=== PATIENT | female | born 1965 | race Caucasian/White ===

== ENCOUNTER 2018-08-16 06:23 | Day surgery (SDC) | payer MEDICAID ==
[2018-08-12 15:54] LABS: BASOPHILS # (AUTO) 0.1 X10'3 (0-0.2); BASOPHILS % (AUTO) 0.5 % (0-1); EOSINOPHILS # (AUTO) 0.3 X10'3 (0-0.9); EOSINOPHILS % (AUTO) 2.1 % (0-6); LYMPHOCYTES % (AUTO) 31.2 % (21-51); MEAN CORPUSCULAR HEMOGLOBIN 29.3 PG (27.0-31.0); MEAN CORPUSCULAR HGB CONC 33.3 g/dL (33.0-36.5); MEAN CORPUSCULAR VOLUME 88.1 FL (78-98); MEAN PLATELET VOLUME 7.5 FL (7.4-10.4); MONOCYTES # (AUTO) 0.9 X10'3 (0-0.9); MONOCYTES % (AUTO) 6.9 % (2-12); NEUTROPHILS # (AUTO) 7.6 X10'3 (1.8-7.7); NEUTROPHILS % (AUTO) 59.3 % (42-75); PRE OP HEMATOCRIT 45.3 % (35.0-45.0); PRE OP HEMOGLOBIN 15.1 g/dL (12.0-16.0); PRE OP PLATELET COUNT 453 X10'3 (140-440); RED BLOOD COUNT 5.14 X10'6 (4.20-5.60); RED CELL DISTRIBUTION WIDTH 13.9 % (11.5-14.5)
[2018-08-12 16:14] LABS: ALBUMIN 4.1 G/DL (3.4-5.0); ALBUMIN/GLOBULIN RATIO 1.2 (1.1-1.5); ALKALINE PHOSPHATASE 74 IU/L (46-116); BLOOD UREA NITROGEN 12 MG/DL (7-18); BUN/CREATININE RATIO 13.2 (6.6-38.0); CALCIUM 9.8 MG/DL (8.5-10.1); CHLORIDE 103 MMOL/L (99-107); CREATININE 0.91 MG/DL (0.40-0.90); PRE OP ALT 23 U/L (30-65); PRE OP ANION GAP 8 (8-16); PRE OP AST 24 U/L (10-37); PRE OP BILIRUB, TOTAL 0.4 MG/DL (0.0-1.0); PRE OP GLUCOSE 91 MG/DL (70-104); PRE OP POTASSIUM 3.6 MMOL/L (3.4-5.1); PRE OP SODIUM 141 MMOL/L (135-145); TOTAL PROTEIN 7.6 G/DL (6.4-8.2); eGFR 64 ML/MIN
[2018-08-16] VITALS (7 sets, daily range): BP systolic 103–129; BP diastolic 44–76
[~2018-08-16] VITALS: Ht 152.4 cm; Wt 52.4 kg
[~2018-08-16 06:23] MED LIST: ALBU6.7H INH; CLINDAmcin 900mg/NS 50ml IVPB 50 ML IV ONE; TIOT18CA3 INH; VALARIAN ROOT PO; albuterol 2.5 MG/3 ML nebule NEB ONE; clindamycin 600mg/D5W 50ml 50 ML IV ONE; famotidine 20mg tablet PO ONE; ringers solution, lacted 1,000 ML IV SCH
[2018-08-16] MEDS ORDERED: BUPIVAcaine/PF 2.5mg/ml (0.25%) 10ml vial ONE ×2 (06:48→08:47)
[2018-08-16] MEDS ORDERED: LIDOcaine 1% (10mg/ml) 2ml vial ONE (07:06)
[2018-08-16] MEDS ORDERED: LIDOcaine 0.5% (5mg/ml) 50ml vial ONE (07:13)
[2018-08-16] MEDS ORDERED: ringers solution, lacted 1,000 ML IV SCH (07:46)
[2018-08-16] MEDS ORDERED: labetalol 20mg/4ml (5mg/ml) syringe IV PRN (07:50)
[2018-08-16] MEDS ORDERED: ondansetron/PF 4mg/2ml inj IV PRN (07:50)
[2018-08-16] MEDS ORDERED: morphine 4 MG/ML inj SYRINge IV PRN ×2 (07:50)
[2018-08-16] MEDS ORDERED: hydrALAZINE 20mg/ml inj. IV PRN (07:50)
[2018-08-16] MEDS ORDERED: fentaNYL/PF 50MCG/1 ML 2ML syringe IV PRN ×2 (07:50)
[2018-08-16] MEDS ORDERED: fentaNYL/PF 50MCG/1 ML 2ML syringe ONE (08:34)
[2018-08-16] MEDS ORDERED: midazolam 2 mg/2 ml injection ONE (08:34)
--- NOTE | 2018-08-16 09:22 | NUR ---
Received from OR via [facility], accompanied by Anesthesiologist DR WANG and report given by Anesthesiologist. PT DROWSY, APPROPRIATE, DENIES PAIN, RIGHT HAND W/DRSG AND JAHAIRA WRAP COVERING CDI, PT ABLE TO WIGGLE JODIE SALGADO, COMPUTER SPECIALIST 1-2 SECONDS. Addendum: 08/16/18 at 1015 by Karley Figueroa RN Amended: Links added.
== END 2018-08-16 10:22 | disposition home or self-care (01) ==
LOC: PAS 06:23
PROVIDERS: ATTEND Orthopaedic Surgery Hand Surgery
DX: G56.01 Carpal tunnel syndrome, right upper limb (principal); M19.011 Primary osteoarthritis, right shoulder; F17.200 Nicotine dependence, unspecified, uncomplicated; Z98.890 Other specified postprocedural states; Z79.899 Other long term (current) drug therapy; Z88.8 Allergy status to other drugs, medicaments and biological substances
CPT/HCPCS: 29848; 36415; 80053; 82948; 85025; 93005; A6449; J2001; J2250; J3010; J3490; A7000; J7120

== ENCOUNTER 2019-03-11 10:36 | Day surgery (SDC) | payer MEDICAID ==
[2019-03-07 16:29] LABS: BASOPHILS # (AUTO) 0.1 X10'3 (0-0.2); BASOPHILS % (AUTO) 0.8 % (0-1); EOSINOPHILS # (AUTO) 0.3 X10'3 (0-0.9); EOSINOPHILS % (AUTO) 1.8 % (0-6); LYMPHOCYTES # (AUTO) 3.8 X10'3 (1.1-4.8); LYMPHOCYTES % (AUTO) 27.4 % (21-51); MEAN CORPUSCULAR HEMOGLOBIN 30.9 PG (27.0-31.0); MEAN CORPUSCULAR HGB CONC 34.2 g/dL (33.0-36.5); MEAN CORPUSCULAR VOLUME 90.3 FL (78-98); MEAN PLATELET VOLUME 7.4 FL (7.4-10.4); MONOCYTES % (AUTO) 6.8 % (2-12); NEUTROPHILS # (AUTO) 8.8 X10'3 (1.8-7.7); NEUTROPHILS % (AUTO) 63.2 % (42-75); PRE OP HEMATOCRIT 38.2 % (35.0-45.0); PRE OP HEMOGLOBIN 13.1 g/dL (12.0-16.0); PRE OP PLATELET COUNT 458 X10'3 (140-440); RED BLOOD COUNT 4.23 X10'6 (4.20-5.60); RED CELL DISTRIBUTION WIDTH 13.4 % (11.5-14.5)
[2019-03-07 16:39] LABS: ALBUMIN 3.5 G/DL (3.4-5.0); ALKALINE PHOSPHATASE 72 IU/L (46-116); BLOOD UREA NITROGEN 11 MG/DL (7-18); BUN/CREATININE RATIO 13.9 (6.6-38.0); CALCIUM 8.9 MG/DL (8.5-10.1); CHLORIDE 105 MMOL/L (99-107); CREATININE 0.79 MG/DL (0.40-0.90); PRE OP ALT 27 U/L (30-65); PRE OP ANION GAP 9 (8-16); PRE OP AST 32 U/L (10-37); PRE OP BILIRUB, TOTAL 0.4 MG/DL (0.0-1.0); PRE OP GLUCOSE 76 MG/DL (70-104); PRE OP POTASSIUM 3.9 MMOL/L (3.4-5.1); PRE OP SODIUM 143 MMOL/L (135-145); TOTAL CARBON DIOXIDE 29.3 MMOL/L (24-32); TOTAL PROTEIN 7.1 G/DL (6.4-8.2); eGFR 76 ML/MIN
[2019-03-11] VITALS (8 sets, daily range): BP systolic 119–146; BP diastolic 73–83
[~2019-03-11] VITALS: Ht 152.4 cm; Wt 53.5 kg
[~2019-03-11 10:36] MED LIST changes: -ALBU6.7H INH; +ALBU6.7H9 INH; -CLINDAmcin 900mg/NS 50ml IVPB 50 ML IV ONE; +HYDR-4383 PO; +NAPR220C15 PO; -VALARIAN ROOT PO; -albuterol 2.5 MG/3 ML nebule NEB ONE; -clindamycin 600mg/D5W 50ml 50 ML IV ONE; -famotidine 20mg tablet PO ONE; -ringers solution, lacted 1,000 ML IV SCH
[2019-03-11] MEDS ORDERED: cefazolin/dext.iso 2gm/50ml 50 ML IV ONE (12:35)
[2019-03-11] MEDS ORDERED: cloNIDine hcl/PF 100mcg/ml inj ONE (13:15)
[2019-03-11] MEDS ORDERED: midazolam 2 mg/2 ml injection ONE (13:18)
[2019-03-11] MEDS ORDERED: fentaNYL/PF 50MCG/1 ML 2ML syringe ONE (13:18)
[2019-03-11] MEDS ORDERED: propofol inj 20 ML IV ONE (13:25)
[2019-03-11] MEDS ORDERED: ROPIVAcaine 0.5% (5mg/ml) 30ml vial ONE (13:25)
[2019-03-11] MEDS ORDERED: sevoflurane 250ml liquid IH ONE (13:26)
--- NOTE | 2019-03-11 14:35 | NUR ---
Received from OR via BED , accompanied by Anesthesiologist DR ASENCIO and report given by Anesthesiolgist. pATIENT A&OX4, DENIES PAIN, V/S STABLE, NEUROVASCULAR CHECKS INTACT. 20G PIV LUE, SCD ON DRESSING TO RIGHT KNEE CDI WITH IMMOBILIZER BRACE TO RLE
[2019-03-11] MEDS ORDERED: HYDROcodone/acetaminophen 10/325mg tab PO ONE (14:55)
--- NOTE | 2019-03-11 15:35 | NUR ---
pATIENT A&OX4, DENIES PAIN, V/S STABLE, NEUROVASCULAR CHECKS INTACT. 20G PIV LUE D/C, SCD OFF DRESSING TO RIGHT KNEE CDI WITH IMMOBILIZER BRACE TO RLE. PATIENT GIVEN SCRIPT FOR [facility] AND I HAVE REVIEWED D/C INSTRUCTIONS WITH PATIENT AND HER AND THEY HAVE VERBALIZED UNDERSTANDING. PATIENT D/C HOME WITH ALL BELONGINGS AN DHUSBAND GAVE TRANSPORT
[2019-03-12] MEDS ORDERED: albuterol 2.5 MG/3 ML nebule NEB ONE (10:00)
[2019-03-12] MEDS ORDERED: famotidine 20mg tablet PO ONE (10:00)
[2019-03-12] MEDS ORDERED: ringers solution, lacted 1,000 ML IV SCH (10:00)
== END 2019-03-11 15:35 | disposition home or self-care (01) ==
LOC: PAS 10:36
PROVIDERS: ATTEND Orthopaedic Surgery
DX: S82.041A Displaced comminuted fracture of right patella, initial encounter for closed fracture (principal); G89.18 Other acute postprocedural pain; F17.210 Nicotine dependence, cigarettes, uncomplicated; J44.9 Chronic obstructive pulmonary disease, unspecified; F32.9 Major depressive disorder, single episode, unspecified; F41.9 Anxiety disorder, unspecified; Z88.1 Allergy status to other antibiotic agents; Z88.8 Allergy status to other drugs, medicaments and biological substances; Z79.899 Other long term (current) drug therapy; Z98.890 Other specified postprocedural states; W19.XXXA Unspecified fall, initial encounter; Y93.89 Activity, other specified; Y92.094 Garage of other non-institutional residence as the place of occurrence of the external cause; Y99.8 Other external cause status
CPT/HCPCS: 27524; 36415; 64447; 73560; 76000; 80053; 82948; 85025; C1713; J0735; J2250; J2704; J3010; J7120; A4618; A6449; A7000; J2795

== ENCOUNTER 2019-10-28 10:26 | Day surgery (SDC) | payer MEDICAID ==
[2019-10-22 11:12] LABS: BASOPHILS # (AUTO) 0.1 X10'3 (0-0.2); BASOPHILS % (AUTO) 1.2 % (0-1); EOSINOPHILS # (AUTO) 0.3 X10'3 (0-0.9); EOSINOPHILS % (AUTO) 2.8 % (0-6); LYMPHOCYTES # (AUTO) 4.4 X10'3 (1.1-4.8); LYMPHOCYTES % (AUTO) 40.7 % (21-51); MEAN CORPUSCULAR HEMOGLOBIN 29.4 PG (27.0-31.0); MEAN CORPUSCULAR HGB CONC 33.2 g/dL (33.0-36.5); MEAN CORPUSCULAR VOLUME 88.5 FL (78-98); MEAN PLATELET VOLUME 7.6 FL (7.4-10.4); MONOCYTES # (AUTO) 0.7 X10'3 (0-0.9); MONOCYTES % (AUTO) 6.5 % (2-12); NEUTROPHILS # (AUTO) 5.2 X10'3 (1.8-7.7); NEUTROPHILS % (AUTO) 48.8 % (42-75); PRE OP HEMATOCRIT 43.8 % (35.0-45.0); PRE OP HEMOGLOBIN 14.6 g/dL (12.0-16.0); PRE OP PLATELET COUNT 432 X10'3 (140-440); RED BLOOD COUNT 4.95 X10'6 (4.20-5.60); RED CELL DISTRIBUTION WIDTH 13.8 % (11.5-14.5)
[2019-10-22 11:27] LABS: ALBUMIN 3.9 G/DL (3.4-5.0); ALBUMIN/GLOBULIN RATIO 1.2 (1.1-1.5); ALKALINE PHOSPHATASE 72 IU/L (46-116); BLOOD UREA NITROGEN 11 MG/DL (7-18); BUN/CREATININE RATIO 11.7 (6.6-38.0); CALCIUM 9.3 MG/DL (8.5-10.1); CHLORIDE 106 MMOL/L (99-107); CREATININE 0.94 MG/DL (0.40-0.90); PRE OP ALT 30 U/L (30-65); PRE OP ANION GAP 7 (8-16); PRE OP AST 31 U/L (10-37); PRE OP BILIRUB, TOTAL 0.4 MG/DL (0.0-1.0); PRE OP GLUCOSE 93 MG/DL (70-104); PRE OP POTASSIUM 4.1 MMOL/L (3.4-5.1); PRE OP SODIUM 144 MMOL/L (135-145); TOTAL CARBON DIOXIDE 31.5 MMOL/L (24-32); TOTAL PROTEIN 7.1 G/DL (6.4-8.2); eGFR 62 ML/MIN
[2019-10-28] VITALS (11 sets, daily range): BP systolic 123–153; BP diastolic 59–85
[~2019-10-28] VITALS: Ht 167.6 cm; Wt 56.3 kg
[~2019-10-28 10:26] MED LIST changes: +BUPR100T5 PO; -HYDR-4383 PO; +VANCOMYCIN INJ 1000 MG in NORMAL SALINE 250ml IV.SOLN IV ONE; +acetaminophen 325mg tablet PO ONE; +albuterol 2.5 MG/3 ML nebule NEB ONE; +cefazolin/dext.iso 2gm/50ml 50 ML IV ONE; +celeCOXIB 100mg capsule PO ONE; +famotidine 20mg tablet PO ONE; +gabapentin 300mg capsule PO ONE; +metoclopramide 5 mg/ml inj IV ONE; +oxyCODONE SR 10mg (sust. release) tab -2 tabs (20mg) PO ONE; +ringers solution, lacted 1,000 ML IV SCH; +tranexamic acid 1gm/0.7% sal. 100 ML IV ONE
[2019-10-28] MEDS ORDERED: LIDOcaine 1% (10mg/ml) 2ml vial ONE (11:32)
[2019-10-28] MEDS ORDERED: ringers solution, lacted 1,000 ML IV SCH (14:11)
[2019-10-28] MEDS ORDERED: hydrALAZINE 20mg/ml inj. IV PRN (14:15)
[2019-10-28] MEDS ORDERED: labetalol 20mg/4ml (5mg/ml) syringe IV PRN (14:15)
[2019-10-28] MEDS ORDERED: fentaNYL/PF 50MCG/1 ML 2ML syringe IV PRN ×2 (14:15)
[2019-10-28] MEDS ORDERED: ondansetron/PF 4mg/2ml inj IV PRN (14:15)
[2019-10-28] MEDS ORDERED: morphine 2 MG/ML inj. syringe IV PRN (14:15)
[2019-10-28] MEDS ORDERED: ondansetron/PF 4mg/2ml inj ONE (14:38)
[2019-10-28] MEDS ORDERED: LIDOcaine 2% (20mg/ml) 5ml vial ONE (14:38)
[2019-10-28] MEDS ORDERED: propofol inj 20 ML IV ONE (14:38)
[2019-10-28] MEDS ORDERED: ROPIVAcaine 0.5% (5mg/ml) 30ml vial ONE (14:39)
[2019-10-28] MEDS ORDERED: dexamethasone sod phosphate 10mg/ml inj ONE (14:52)
[2019-10-28] MEDS ORDERED: sevoflurane 250ml liquid IH ONE (14:52)
[2019-10-28] MEDS ORDERED: fentaNYL/PF 50MCG/1 ML 2ML syringe ONE (15:57)
--- NOTE | 2019-10-28 16:05 | NUR ---
RECEIVED FROM OR VIA [facility] ACCOMPANIED BY ANESTHESIOLOGIST DR WANG, REPORT GIVEN. PT DROWSY BUT AROUSES WITH NO COMPLAINT OF PAIN AT THIS TIME. DRESSING RLE CDI. PERIPHERAL PULSES PRESENT, GOOD CAP REFILL, SKIN PINK AND WARM, VSS.
[2019-10-28] MEDS: morphine 4 MG/ML inj SYRINge IV PRN ×2 (16:37→16:58)
== END 2019-10-28 17:45 | disposition home or self-care (01) ==
LOC: PAS 10:26
PROVIDERS: ATTEND Orthopaedic Surgery
DX: T84.89XA Other specified complication of internal orthopedic prosthetic devices, implants and grafts, initial encounter (principal); G89.18 Other acute postprocedural pain; F17.210 Nicotine dependence, cigarettes, uncomplicated; Z11.59 Encounter for screening for other viral diseases; J44.9 Chronic obstructive pulmonary disease, unspecified; F41.9 Anxiety disorder, unspecified; F32.9 Major depressive disorder, single episode, unspecified; Z88.8 Allergy status to other drugs, medicaments and biological substances; Z98.890 Other specified postprocedural states; Z79.899 Other long term (current) drug therapy; Y83.8 Other surgical procedures as the cause of abnormal reaction of the patient, or of later complication, without mention of misadventure at the time of the procedure; Y92.89 Other specified places as the place of occurrence of the external cause
CPT/HCPCS: 20680; 36415; 64447; 73560; 76000; 80053; 82948; 85025; 93005; A6222; J1100; J2001; J2270; J2405; J2704; J3010; J3370; J7120; U0003; A4618; A6449; A7000; J2795

== ENCOUNTER 2021-05-26 16:04 | Emergency (ER) | payer MEDICAID ==
[~2021-05-26] VITALS: Ht 152.4 cm; Wt 51.6 kg
[~2021-05-26 16:04] MED LIST changes: -VANCOMYCIN INJ 1000 MG in NORMAL SALINE 250ml IV.SOLN IV ONE; -acetaminophen 325mg tablet PO ONE; -albuterol 2.5 MG/3 ML nebule NEB ONE; -cefazolin/dext.iso 2gm/50ml 50 ML IV ONE; -celeCOXIB 100mg capsule PO ONE; -famotidine 20mg tablet PO ONE; -gabapentin 300mg capsule PO ONE; -metoclopramide 5 mg/ml inj IV ONE; -oxyCODONE SR 10mg (sust. release) tab -2 tabs (20mg) PO ONE; -ringers solution, lacted 1,000 ML IV SCH; -tranexamic acid 1gm/0.7% sal. 100 ML IV ONE
[2021-05-26] MEDS ORDERED: HYDROcodone/acetaminophen 10/325mg tab PO ONE (16:25)
[2021-05-26] MEDS ORDERED: BUPIVAcaine 0.5% inj/PF 30 ml vial IJ ONE (16:50)
[2021-05-26] MEDS ORDERED: HYDR-3965 PO (17:07)
[2021-05-26 18:42] VITALS: BP 136/95
== END 2021-05-26 18:45 | disposition home or self-care (01) ==
LOC: ER 16:04
DX: S52.611A Displaced fracture of right ulna styloid process, initial encounter for closed fracture (principal); S52.571A Other intraarticular fracture of lower end of right radius, initial encounter for closed fracture; Z88.1 Allergy status to other antibiotic agents; Z79.899 Other long term (current) drug therapy; X58.XXXA Exposure to other specified factors, initial encounter; Y93.89 Activity, other specified; Y92.89 Other specified places as the place of occurrence of the external cause; Y99.8 Other external cause status
CPT/HCPCS: 29125; 73070; 73110; 99284

== ENCOUNTER 2025-05-09 15:38 | Emergency (ER) | payer MEDICAID ==
[~2025-05-09] VITALS: Ht 152.4 cm; Wt 60.9 kg
[~2025-05-09 15:38] MED LIST changes: +ALBU6.7H14 INH; -ALBU6.7H9 INH
--- NOTE | 2025-05-09 16:01 | Physician Documentation ---
History of Present Illness ~ Chief Complaint: Mechanical Fall Stated Complaint: FALL/L BACK AND KNEE PAIN Time Seen by MD: 15:58 Primary Medical Doctor: Shock Source: patient Mode of Arrival: POV Exam Limitations: no limitations HPI 59-year-old was roller skating when a kid lost balance and pulled on her where s he fell on her right knee and buttocks. Patient is concerned she compress her spine with pain to her lumbar spine and right knee. Patient also has history of previous right knee fracture Dr. Zaragoza was the gas specialist to repaired knee in 2019 no head strike or loss of consciousness Medication Reconciliation Allergies: Coded Allergies: Cephalexin Monohydrate (Verified Allergy, Mild, ITCHING, 05/09/25) PT REPORTS ITCHING IN PERINEUM AFTER TRYING KEFLEX. SHE HAS TAKEN AMOX WITHOUT ANY PROBLEMS cephalexin (Unverified Allergy, Mild, RASH., 05/09/25) Scheduled Tiotropium Wendel (Spiriva), 1 CAP INH DAILY, (Reported) Scheduled PRN Albuterol Sulfate (Proventil Hfa), 2 PUFFS INH Q4H PRN for SOB or wheezing, (Reported) Bupropion HCl (Wellbutrin Sr), 0.5 TAB PO QAM PRN for anxiety, (Reported) Naproxen Sodium* (Aleve*), 220 MG PO BID PRN for pain, (Reported) Past Medical History Past Medical History: *MUSCULOSKELETAL* Past Surgical History: no surgical history Alcohol Use: None Drug Use: none Lives In: Home Review of Systems All Other Systems at this time: Reviewed and Negative Musculoskeletal: Reports: see HPI Physical Exam Vital Signs: RN Vital Signs have been reviewed: Yes, Temperature: 97.7, Source: Temporal, Heart Rate: 98, Respiratory Rate: 18, BP: 130/87, Pulse Oximetry: 97, Weight: 60.900 Oxygen Flow Rate: 0 Physical Exam General: Alert, no apparent distress. HEENT: moist mucous membranes. Neck: Full range of motion. Respiratory: No respiratory distress speaking in full sentences Chest: No accessory muscle use. Cardiovascular: Appears well perfused Neurologic: Oriented x4. Psychiatric: Normal mood and affect. Skin: Normal color, warm and dry. No edema, no ecchymosis. Progress Results/Orders Results/Orders Orders - MARTHA KOWALSKI NP Knee, Complete (05/09/25 15:59) Sacrum & Coccyx (05/09/25 15:59) Lumbar Spine Limited (05/09/25 15:59) Completed Orders - MARTHA KOWALSKI REGISTERED MEDICAL ASSISTANT Knee, Complete (05/09/25 15:59) Sacrum & Coccyx (05/09/25 15:59) Lumbar Spine Limited (05/09/25 15:59) Vital Signs 05/09/25 15:57 Temp 97.7 Pulse 98 Resp 18 B/P (MAP) 130/87 Pulse Ox 97 O2 Flow Rate 0 EKG/XRAY/CT/US/VASC/MRI Bone/Soft Tissue X-Ray (Spine) #1: Additional Comment LUMBAR SPINE 2 VIEWS REASON FOR EXAM: Fall while roller skating COMPARISON: None TECHNIQUE: AP and lateral views of the lumbar spine are obtained. AP, caudal oblique, and lateral views of the sacrum and coccyx are submitted for review. FINDINGS: There is some demineralization of the bones. Five lumbar type vertebra are identified. There is acute appearing mild compression deformity at the superior endplate of T12. Visualized vertebral body height is otherwise maintained. There is mild disc height loss at L2-L3 with early endplate hypertrophy. No sacrococcygeal fracture is identified. The soft tissues are grossly unremarkable. IMPRESSION: Acute appearing mild compression deformity at the superior endplate of T12. Correlate clinically with physical exam and history for location and chronicity of back pain. MRI of the lumbar spine may be helpful as it is more sensitive to subtle acute fractures. Bone/Soft Tissue X-Ray (Spine) #2: Additional Comment LUMBAR SPINE 2 VIEWS REASON FOR EXAM: Fall while roller skating COMPARISON: None TECHNIQUE: AP and lateral views of the lumbar spine are obtained. AP, caudal oblique, and lateral views of the sacrum and coccyx are submitted for review. FINDINGS: There is some demineralization of the bones. Five lumbar type vertebra are identified. There is acute appearing mild compression deformity at the superior endplate of T12. Visualized vertebral body height is otherwise maintained. There is mild disc height loss at L2-L3 with early endplate hyp ertrophy. No sacrococcygeal fracture is identified. The soft tissues are grossly unremarkable. IMPRESSION: Acute appearing mild compression deformity at the superior endplate of T12. Correlate clinically with physical exam and history for location and chronicity of back pain. MRI of the lumbar spine may be helpful as it is more sensitive to subtle acute fractures. Bone/Soft Tissue X-Ray (Ext.) : Additional Comment EXAM: DI KNEE, COMP 4 VW MIN REASON FOR EXAM: Fall while roller skating TECHNIQUE: AP, cross-table lateral, and tunnel view of the right knee are submitted for review. COMPARISON: None FINDINGS: There is no acute fracture or dislocation. There is no significant knee effusion. The soft tissues are grossly unremarkable. IMPRESSION: No acute fracture or dislocation identified. Medical Decision Making Additional information obtaine: old records Findings X-rays to evaluate for any acute abnormalities including osseous abnormalities fractures. Compression fracture of T12. Knee x-ray was unremarkable for any significant findings. Patient has extensive orthopedic history she does use a walker when she sore. Patient has no saddle paresthesia no gait difficulty with bowel or bladder control currently. Patient staying with her friend. Patient has pain medication and is denying need for medication to be referred today. Patient will contact [facility] for further treatment evaluation as well as images. Differential Dx:Considerations: Include: Fracture(s), Spine injury, Contusion(s) Departure Time of Disposition: 18:23 Disposition: HOME / SELF CARE / HOMELESS Impression: Primary Impression: Fall Additional Impressions: Compression fracture of T2 vertebra Knee pain Condition: Stable Discharge Instructions: Spinal Compression Fracture Additional Instructions: Wear brace when active may take brace off to sleep follow up with [facility] on Sunday as well as primary care on Sunday. Feel free to return to the ER for any new or worsening symptoms or pain. Monitor for any neurologic disorders Referrals: NO PRIMARY CARE PROVIDER (PCP) [facility] Education Educated: Patient Educated regarding: diagnosis, treatment, need for follow up Signature Scribe Signature: No scribe Attestation: The note accurately reflects work and decisions made by me.Martha Kowalski - PATO 05/09/25 16:01 MARTHA KOWALSKI NP May 09, 2025 16:01
--- NOTE | 2025-05-09 17:35 | RADIOLOGY REPORT ---
EXAM: DI KNEE, COMP 4 VW MIN REASON FOR EXAM: Fall while roller skating TECHNIQUE: AP, cross-table lateral, and tunnel view of the right knee are submitted for review. COMPARISON: None FINDINGS: There is no acute fracture or dislocation. There is no significant knee effusion. The soft tissues are grossly unremarkable. IMPRESSION: No acute fracture or dislocation identified.
--- NOTE | 2025-05-09 18:05 | RADIOLOGY REPORT ---
LUMBAR SPINE 2 VIEWS REASON FOR EXAM: Fall while roller skating COMPARISON: None TECHNIQUE: AP and lateral views of the lumbar spine are obtained. AP, caudal oblique, and lateral views of the sacrum and coccyx are submitted for review. FINDINGS: There is some demineralization of the bones. Five lumbar type vertebra are identified. There is acute appearing mild compression deformity at the superior endplate of T12. Visualized vertebral body height is otherwise maintained. There is mild disc height loss at L2-L3 with early endplate hy pertrophy. No sacrococcygeal fracture is identified. The soft tissues are grossly unremarkable. IMPRESSION: Acute appearing mild compression deformity at the superior endplate of T12. Correlate clinically with physical exam and history for location and chronicity of back pain. MRI of the lumbar spine may be helpful as it is more sensitive to subtle acute fractures.
[2025-05-09 19:05] VITALS: BP 132/86; PULSE 88; RESP 16; TEMP 97.7; O2SAT 98
== END 2025-05-09 19:07 | disposition home or self-care (01) ==
LOC: ER 15:39
DX: S22.088A Other fracture of T11-T12 vertebra, initial encounter for closed fracture (principal); M25.561 Pain in right knee; Z88.1 Allergy status to other antibiotic agents; Z79.899 Other long term (current) drug therapy; V00.121A Fall from non-in-line roller-skates, initial encounter; Y93.51 Activity, roller skating (inline) and skateboarding; Y92.89 Other specified places as the place of occurrence of the external cause; Y99.8 Other external cause status
CPT/HCPCS: 72100; 72220; 73564; 99284; A6258